=== PATIENT | male | born 1935 | race Hispanic/Latino ===

== ENCOUNTER 2016-10-18 10:01 | Day surgery (SDC) | payer MEDICARE ==
[2016-10-10 14:04] VITALS: BMI 19.5
[2016-10-18] MEDS ORDERED: Midazolam 2 MG/2 ML VIAL ONE (11:51)
[2016-10-18] MEDS ORDERED: Propofol 10 mg/ml Inj (20 ML) ONE (11:51)
[2016-10-18] MEDS ORDERED: Sodium Chloride 0.9% 1,000 ML IV SCH (13:00)
[2016-10-18 13:11] VITALS: TEMP 97.6
[2016-10-18 14:36] VITALS: BP 138/53; RESP 18
[2016-10-18 14:37] VITALS: PULSE 54; O2SAT 100
== END 2016-10-18 14:32 | disposition home or self-care (01) ==
LOC: ENDO 10:01
PROVIDERS: ATTEND Internal Medicine Gastroenterology
DX: D12.0 Benign neoplasm of cecum (principal); K64.8 Other hemorrhoids; R19.7 Diarrhea, unspecified; Z94.0 Kidney transplant status
CPT/HCPCS: 45380; 88305; J2250; J2704; J3010; J7040 ×2